=== PATIENT | female | born 1965 | race Caucasian/White ===

== ENCOUNTER 2019-03-18 09:25 | Emergency (ER) | payer OTHER ==
[~2019-03-18] VITALS: Ht 165.1 cm; Wt 63.5 kg
[2019-03-18] MEDS ORDERED: PROPRANOLOL HCL20 MG (09:46)
[2019-03-18] MEDS ORDERED: NAPROXEN500 MG PO (13:35)
== END 2019-03-18 14:43 | disposition home or self-care (01) ==
LOC: ER 09:25
DX: M25.512 Pain in left shoulder (principal)

== ENCOUNTER 2021-02-03 00:34 | Emergency (ER) | payer OTHER ==
[~2021-02-03] VITALS: Ht 165.1 cm; Wt 63.5 kg
[~2021-02-03 00:34] MED LIST: NAPROXEN500 MG PO; PROPRANOLOL HCL20 MG
[2021-02-03] MEDS ORDERED: CARAFATE1 GM PO (05:52)
[2021-02-03] MEDS ORDERED: PEPCID AC20 MG PO (05:52)
[2021-02-03] MEDS ORDERED: PROTONIX20 MG PO (05:52)
== END 2021-02-03 06:11 | disposition home or self-care (01) ==
LOC: ER 00:34
DX: K29.00 Acute gastritis without bleeding (principal)